=== PATIENT | male | born 1985 | race Caucasian/White ===

== ENCOUNTER 2016-09-08 12:38 | Emergency (ER) | payer OTHER ==
[~2016-09-08] VITALS: Ht 180.3 cm; Wt 100.0 kg
[~2016-09-08 12:38] MED LIST: CEPH500C3; OXYC-360; Z.0.NO CURRENT MEDS
[2016-09-08 12:39] VITALS: BP 193/93; PULSE 69; RESP 16; TEMP 97.3; O2SAT 100
--- NOTE | 2016-09-08 12:47 | PD ---
Physical Exam Date Seen by Provider: Sep 08, 2016 Time Seen by Provider: 12:45 Data Data Last Documented VS Vital Signs Date Time Temp Pulse Resp B/P Pulse Ox O2 Delivery O2 Flow Rate FiO2 09/08/16 12:39 97.3 69 16 193/93 100 MDM Supervised Visit with BROOKS: No Narrative Course 31 YO M with complaint of intermittent flank pain x 1 week. Constant 9/10 pain since 9am. ++hematuria.+ nausea. --vomiting. Vitals reviewed. Seen in triage, awaiting bed placement. Jyoti Victoria Sep 08, 2016 12:47
[2016-09-08 14:53] VITALS: BP 171/93; PULSE 66; RESP 18; O2SAT 98
[2016-09-08] MEDS ORDERED: SODIUM CHLOR 0.9% 1000 ML INJ 1,000 ML IV SCH (15:01)
--- NOTE | 2016-09-08 15:07 | PD ---
HPI Chief Complaint: Flank/Kidney Pain Time Seen by Provider: 15:05 Travel History International Travel<30 days: No Contact w/Intl Traveler<30days: No Traveled to known affect area: No History of Present Illness HPI 31-year-old male presents to the emergency department for evaluation of left flank pain that started this morning around 9 AM. He states that approximately a week ago, he had approximately 30 minutes of left flank pain and a few days later had another episode of left flank pain. Both times the pain resolved on its own. He states he hematuria right after those episodes. He states the pain today has not dissipated. He states he has not noticed any hematuria today. He states he vomited once in the waiting room while waiting to come back. He denies any fevers. No chest pain or shortness of breath. He denies any abdominal pain. No diarrhea. Patient reports no chronic medical problems and takes no prescribed medications. He denies any previous abdominal surgeries. He denies any history of kidney stones. PFS Past Medical History Medical other: Yes (hernia surgery) Past Surgical History Other Surgery: Yes (HERNIA REPAIR A TEEN) Social History Alcohol Use: No Tobacco Use: No Substance Use: No Allergies-Medications (Allergen,Severity, Reaction): Coded Allergies: No Known Allergies (Verified , 09/08/16) Reported Meds & Prescriptions Reported Meds & Active Scripts Active Ondansetron Odt 4 Mg Tab 4 Mg SL Q6HR PRN Flomax (Tamsulosin HCl) 0.4 Mg Cap 0.4 Mg PO HS 10 Days Review of Systems Except as stated in HPI: all other systems reviewed are Neg Physical Exam Narrative GENERAL: Well-nourished, well-developed male patient, ambulatory. Afebrile. SKIN: Focused skin assessment warm/dry. HEAD: Normocephalic. Atraumatic. EYES: No scleral icterus. No injection or drainage. NECK: Supple, trachea midline. No JVD or lymphadenopathy. CARDIOVASCULAR: Regular rate and rhythm without murmurs, gallops, or rubs. RESPIRATORY: Breath sounds equal bilaterally. No accessory muscle use. Lungs sounds are clear to auscultation. GASTROINTESTINAL: Abdomen soft, non-tender, nondistended. MUSCULOSKELETAL: No cyanosis, or edema. BACK: Nontender without obvious deformity. Left CVA tenderness. Data Data Last Documented VS Vital Signs Date Time Temp Pulse Resp B/P Pulse Ox O2 Delivery O2 Flow Rate FiO2 09/08/16 16:01 16 09/08/16 15:25 98 Room Air 09/08/16 14:53 66 171/93 09/08/16 12:39 97.3 Orders Complete Blood Count With Diff (09/08/16 15:01) Comprehensive Metabolic Panel (09/08/16 15:01) Urinalysis - C+S If Indicated (09/08/16 15:01) Ct Abd/Pel W/O Iv Contrast (09/08/16 15:01) Iv Access Insert/Monitor (09/08/16 15:01) Ecg Monitoring (09/08/16 15:01) Oximetry (09/08/16 15:01) Ondansetron Inj (Zofran Inj) (09/08/16 15:15) Sodium Chlor 0.9% 1000 Ml Inj (Ns 1000 M (09/08/16 15:01) Sodium Chloride 0.9% Flush (Ns Flush) (09/08/16 15:15) Ketorolac Inj (Toradol Inj) (09/08/16 15:15) Sodium Chlor 0.9% 1000 Ml Inj (Ns 1000 M (09/08/16 16:30) Labs Laboratory Tests Test 09/08/16 09/08/16 15:11 15:18 White Blood Count 16.1 TH/MM3 Red Blood Count 5.68 MIL/MM3 Hemoglobin 15.0 GM/DL Hematocrit 45.6 % Mean Corpuscular Volume 80.2 FL Mean Corpuscular Hemoglobin 26.4 PG Mean Corpuscular Hemoglobin 32.9 % Concent Red Cell Distribution Width 13.0 % Platelet Count 220 TH/MM3 Mean Platelet Volume 9.5 FL Neutrophils (%) (Auto) 92.7 % Lymphocytes (%) (Auto) 3.5 % Monocytes (%) (Auto) 3.7 % Eosinophils (%) (Auto) 0.0 % Basophils (%) (Auto) 0.1 % Neutrophils # (Auto) 15.0 TH/MM3 Lymphocytes # (Auto) 0.6 TH/MM3 Monocytes # (Auto) 0.6 TH/MM3 Eosinophils # (Auto) 0.0 TH/MM3 Basophils # (Auto) 0.0 TH/MM3 CBC Comment DIFF FINAL Differential Comment Sodium Level 139 MEQ/L Potassium Level 3.5 MEQ/L Chloride Level 102 MEQ/L Carbon Dioxide Level 25.1 MEQ/L Anion Gap 12 MEQ/L Blood Urea Nitrogen 10 MG/DL Creatinine 1.18 MG/DL Estimat Glomerular Filtration 72 ML/MIN Rate Random Glucose 97 MG/DL Calcium Level 9.4 MG/DL Total Bilirubin 0.5 MG/DL Aspartate Amino Transf 14 U/L (AST/SGOT) Alanine Aminotransferase 18 U/L (ALT/SGPT) Alkaline Phosphatase 94 U/L Total Protein 8.6 GM/DL Albumin 4.4 GM/DL Urine Color LIGHT-YELLOW Urine Turbidity CLEAR Urine pH 5.0 Urine Specific [place] 1.018 Urine Protein TRACE mg/dL Urine Glucose (UA) NEG mg/dL Urine Ketones 150 mg/dL Urine Occult Blood LARGE Urine Nitrite NEG Urine Bilirubin NEG Urine Urobilinogen LESS THAN 2.0 MG/DL Urine Leukocyte Esterase NEG Urine RBC 40 /hpf Urine WBC 1 /hpf Microscopic Urinalysis Comment CULT NOT INDICATED MDM Medical Decision Making Medical Screen Exam Complete: Yes Emergency Medical Condition: Yes Medical Record Reviewed: Yes Interpretation(s) Last Impressions Abdomen/Pelvis CT 09/08/16 1501 Signed Impressions: Service Date/Time: Tuesday, September 08, 2016 16:49 - CONCLUSION: 1. 4 mm stone at the left UVJ with mild to moderate dilatation of the left collecting system and ureter. 2. 2 mm nodule in right renal stone. 3. 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 Dariel Patel MD Differential Diagnosis Nephrolithiasis versus ureterolithiasis versus pyelonephritis versus muscle strain Narrative Course 31-year-old male presents to the emergency department for evaluation left flank pain since 9 AM this morning. CBC, CMP, UA are ordered and pending. CT abdomen /pelvis without contrast is ordered and pending. Patient is given normal saline 1 L IV bolus, Toradol 30 mg IV, Zofran 4 mg IV. CBC shows leukocytosis of 16.1, neutrophilia of 92.7. CMP shows no acute abnormality. UA shows large occult blood, 150 ketones. Patient is given 2nd liter IV NS. CT abdomen/pelvis shows 4 mm stone at the left UVJ with mild to moderate dilatation of the left collecting system and ureter. 2. 2 mm nodule in right renal stone; Fusion at the anterior-inferior aspect of the sacroiliac joints bilaterally. Patient states that he is pain-free after Toradol. His pain is starting to slightly come back. He reports no further episodes of vomiting. Repeat temperature is 98.8. I discussed the case with attending physician, Dr. Garcia , who agrees with plan and disposition. Patient was discharged prescription for Lortab for pain and Flomax. He'll be given a strainer. He is encouraged to follow-up with a urologist. He'll be given the name and number of our urologist on-call today. He is to return for any worsening pain or other symptoms. He agrees to this. Diagnosis Primary Impression: Ureterolithiasis Referrals: Francis Reddy MD call for appointment Patient Instructions: General Instructions, Kidney Stones (ED) Departure Forms: Tests/Procedures, Work Release Enter return to work date: Sep 11, 2016 Additional Instructions: Take Lortab as directed as needed for pain. Caution this can make you drowsy so do not drive after taking. Follow-up with urology. Dr. Reddy is the urologist on-call today. Take Flomax. Use strainer. Return to the emergency department for any acute worsening of symptoms. Med/Other Pt SpecificInfo: Prescription(s) given Scripts Hydrocodone-Acetaminophen (Lortab)5-325 Mg Tab1 Tab PO Q6H PRN (PAIN) #16 TAB Ref 0 Prov:Fito Charlton MD 09/08/16 Ondansetron Odt 4 Mg Tab4 Mg SL Q6HR PRN (Nausea/Vomiting) #16 TAB Ref 0 Prov:Kassandra Jackman 09/08/16 Tamsulosin (Flomax)0.4 Mg Cap0.4 Mg PO HS 10 Days Ref 0 Prov:Kassandra Jackman 09/08/16 Disposition: DISCHARGE HOME Condition: Stable Kassandra Jackman Sep 08, 2016 15:07
[2016-09-08] MEDS ORDERED: ONDANSETRON HCL 4 MG/2 ML VIAL IVP ONE (15:15)
[2016-09-08] MEDS ORDERED: KETOROLAC TROMETHAMINE 30 MG/ML (IVP) VIAL IVP ONE (15:15)
[2016-09-08] MEDS ORDERED: SODIUM CHLORIDE 0.9% FLUSH 10 ML FLUSH IV FLUSH PRN (15:15)
[2016-09-08 15:25] VITALS: O2SAT 98
[2016-09-08 15:36] LABS: BASOPHIL % 0.1 % (0.0-2.0); HEMATOCRIT 45.6 % (39.0-51.0); HEMO FLAGS DIFF FINAL; LYMPH % 3.5 % (9.0-44.0); LYMPHOCYTE # 0.6 TH/MM3 (1.0-4.8); MEAN CELL VOLUME 80.2 FL (80.0-100.0); MEAN CORPUSCULAR HEMOGLOBIN 26.4 PG (27.0-34.0); MEAN CORPUSCULAR HGB CONC 32.9 % (32.0-36.0); MONO % 3.7 % (0.0-8.0); NEUT % 92.7 % (16.0-70.0); PLATELET COUNT 220 TH/MM3 (150-450); RED BLOOD COUNT 5.68 MIL/MM3 (4.50-5.90); WHITE BLOOD COUNT 16.1 TH/MM3 (4.0-11.0)
[2016-09-08 15:58] LABS: ALT (GPT) 18 U/L (12-78); ANION GAP 12 MEQ/L (5-15); AST (GOT) 14 U/L (15-37); BICARBONATE 25.1 MEQ/L (21.0-32.0); BLOOD UREA NITROGEN 10 MG/DL (7-18); CHLORIDE 102 MEQ/L (98-107); GLOMERULAR FILTRATION RATE 72 ML/MIN (>89); POTASSIUM 3.5 MEQ/L (3.5-5.1); SODIUM (NA) 139 MEQ/L (136-145)
[2016-09-08 16:01] VITALS: RESP 16
[2016-09-08 16:01] LABS: ALKALINE PHOSPHATASE 94 U/L (45-117); TOTAL BILIRUBIN ADULT 0.5 MG/DL (0.2-1.0)
[2016-09-08 16:01] LABS: BLOOD, URINE LARGE (NEG); COMMENT (UR) CULT NOT INDICATED; CULTURE IF INDICATED CULT NOT INDICATED; GLUCOSE,URINE NEG (NEG); KETONE, URINE 150 mg/dL (NEG); NITRITE,URINE NEG (NEG); URINE COLOR LIGHT-YELLOW (YELLW/STRAW)
[2016-09-08] MEDS ORDERED: SODIUM CHLOR 0.9% 1000 ML INJ 1,000 ML IV ONE (16:30)
--- NOTE | 2016-09-08 17:35 | RADRPT ---
EXAM DATE/TIME: 09/08/2016 16:49 [facility] COMPARISON: No previous studies available for comparison. INDICATIONS : Left flank pain ORAL CONTRAST: No oral contrast ingested. RADIATION DOSE: 13.04 CTDIvol (mGy) MEDICAL HISTORY : Ashtma. SURGICAL HISTORY : Foot surgery. ENCOUNTER: Initial ACUITY: 1 day PAIN SCALE: 9/10 LOCATION: Left flank TECHNIQUE: Volumetric scanning of the abdomen and pelvis was performed. Using automated exposure control and ad justment of the mA and/or kV according to patient size, radiation dose was kept as low as reasonably achievable to obtain optimal diagnostic quality images. FINDINGS: LOWER LUNGS: The visualized lower lungs are clear. LIVER: Homogeneous density without lesion. There is no dilation of the biliary tree. No calcified gallston es. SPLEEN: Normal size without lesion. PANCREAS: Within normal limits. KIDNEYS: There is a 4 mm stone at the left UVJ. There is mild to moderate dilatation of the left collecting sy stem and left ureter. There is perinephric stranding seen at the left kidney. There is a 2 mm nonobst ructing right renal stone. ADRENAL GLANDS: Within normal limits. VASCULAR: There is no aortic aneurysm. BOWEL/MESENTERY: The stomach, small bowel, and colon demonstrate no acute abnormality. There is no free intraperitone al air or fluid. ABDOMINAL WALL: Within normal limits. RETROPERITONEUM: There is no lymphadenopathy. BLADDER: No wall thickening or mass. REPRODUCTIVE: Within normal limits. INGUINAL: There is no lymphadenopathy or hernia. MUSCULOSKELETAL: There is fusion of the anterior and inferior aspects of the sacroiliac joints bilaterally. sacroiliac joints. CONCLUSION: 1. 4 mm stone at the left UVJ with mild to moderate dilatation of the left collecting system and uret er. 2. 2 mm nodule in right renal stone. 3. 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 Dariel Patel MD on September 08, 2016 at 17:28 Board Certified Radiologist. This report was verified electronically.
[2016-09-08] MEDS ORDERED: ONDA4TAB7 SL (18:02)
[2016-09-08] MEDS ORDERED: TAMS5CAP PO (18:02)
[2016-09-08] MEDS ORDERED: HYDR-3533 PO (18:03)
[2016-09-08 18:09] VITALS: BP 168/72
[2016-09-08] MEDS ORDERED: ACETAMINOPHEN/HYDROcodone 325 MG/5 MG TAB PO ONE (18:15)
== END 2016-09-08 18:29 | disposition home or self-care (01) ==
LOC: NEPD 12:38
DX: N20.1 Calculus of ureter (principal); D72.829 Elevated white blood cell count, unspecified; N20.0 Calculus of kidney
CPT/HCPCS: 74176; 80053; 81001; 85025; 96361; 96374; 96375; 99285; J1885; J2405; J7030